=== PATIENT | female | born 1945 | race Asian ===

== ENCOUNTER 2019-09-05 17:14 | Inpatient (IN) | payer MEDICAID, OTHER ==
[~2019-09-05] VITALS: Ht 152.4 cm; Wt 72.4 kg
[2019-09-05] MEDS ORDERED: SODIUM CHLORIDE 0.9% 1,000 ML IV ONE (17:42)
[2019-09-05] MEDS ORDERED: ACETAMINOPHEN 500 MG TABLET PO ONE (17:45)
[2019-09-05] MEDS ORDERED: ONDANSETRON HCL 4 MG/2 ML VIAL IVP ONE (18:00)
[2019-09-05 18:08] LABS: MEAN CORPUSCULAR HEMOGLOBIN 29.4 pg (26.0-34.0); MEAN CORPUSCULAR HGB CONC 33.4 G/dL (31.0-37.0); MEAN CORPUSCULAR VOLUME 88 fL (80-100); PLATELET COUNT (AUTO) 345 K/uL (150-450); RED BLOOD CELL COUNT(AUTO) 4.08 MIL/uL (4.00-5.20); RED CELL DISTRIBUTION WIDTH 13.1 % (11.5-14.5)
[2019-09-05 18:22] LABS: PROTHROMBIN TIME 10.2 SEC (9.4-11.6)
[2019-09-05 18:26] LABS: CALCIUM, TOTAL 8.4 mg/dL (8.8-10.5); CREATININE 2.01 mg/dL (0.60-1.30); POTASSIUM 4.9 mmol/L (3.5-5.1)
[2019-09-05 18:34] LABS: LACTIC ACID 1.8 mmol/L (0.4-2.0)
[2019-09-05 18:51] LABS: ALBUMIN 3.3 g/dL (3.4-5.0); BILIRUBIN,TOTAL 0.6 mg/dL (0.1-1.0); TOTAL PROTEIN, SERUM 7.8 g/dL (6.4-8.2)
[2019-09-05 19:01] LABS: BAND NEUTROPHILS % (MANUAL) 15 % (0-5); LYMPHOCYTES % (MANUAL) 5 % (22-44); MONOCYTES % (MANUAL) 9 % (2-9); SEGMENTED NEUTROPHILS % 71 % (40-70)
[2019-09-05 19:03] LABS: INFLUENZA TYPE A NEGATIVE FOR TYPE A (NEGATIVE); INFLUENZA TYPE B NEGATIVE FOR TYPE B (NEGATIVE)
[2019-09-05] MEDS ORDERED: CefTRIAXone 1 GM/DEXTROSE 50 ML IV ONE (19:15)
[2019-09-05] MEDS ORDERED: AZITHROMYCIN 500 MG/NS 250 ML IV ONE (19:15)
[2019-09-05] MEDS ORDERED: ONDANSETRON HCL 4 MG/2 ML VIAL IVP PRN ×2 (19:30→22:30)
[2019-09-05] MEDS ORDERED: ACETAMINOPHEN 325 MG TABLET PO PRN (19:30)
[2019-09-05] MEDS ORDERED: CLOP75TA3 PO (21:46)
[2019-09-05] MEDS ORDERED: OMEP20 PO (21:46)
[2019-09-05] MEDS ORDERED: TELM40 PO (21:46)
[2019-09-05] MEDS ORDERED: ROSU10TA22 PO (21:46)
[2019-09-05] MEDS ORDERED: LEVO100 PO (21:46)
[2019-09-05] MEDS: DOCUSATE SODIUM 100 MG CAPSULE PO SCH (22:30)
[2019-09-05] MEDS ORDERED: OxyCODONE HCL/ACETAMINOPHEN 5-325 MG TABLET PO PRN ×2 (22:30)
[2019-09-05] MEDS ORDERED: 0.9% SODIUM CHLORIDE 10 ML SYRINGE IVP PRN (22:30)
[2019-09-05 22:59] VITALS: BP 136/79
[2019-09-06 05:09] VITALS: BP 117/57
[2019-09-06] MEDS: DILTIAZEM HCL 30 MG TABLET PO SCH ×2 (05:55→16:18)
[2019-09-06] MEDS ORDERED: DILTIAZEM HCL 30 MG TABLET PO SCH (08:00)
[2019-09-06] MEDS: DOCUSATE SODIUM 100 MG CAPSULE PO SCH ×2 (08:37→22:14)
[2019-09-06] MEDS: FAMOTIDINE 10 MG/ML 2 ML VIAL IVP SCH (08:37)
[2019-09-06 11:55] LABS: APPEARANCE,URINE CLEAR (CLEAR); BILIRUBIN,URINE NEGATIVE (NEGATIVE); GLUCOSE, URINE (UA) NEGATIVE (NEGATIVE); KETONES,URINE NEGATIVE (NEGATIVE); LEUKOCYTE ESTERASE ,URINE NEGATIVE (NEGATIVE); NITRATE,URINE NEGATIVE (NEGATIVE); OCCULT BLOOD,URINE TRACE (NEGATIVE); PH,URINE 5.5 (5.0-8.0); PROTEIN,URINE SEE CONFIRM (NEGATIVE); UROBILINOGEN,URINE 0.2 mg/dL (<=1.0)
[2019-09-06 12:12] LABS: SULFOSALICYLIC ACID,URINE 1+ (Negative)
[2019-09-06 12:18] LABS: BACTERIA,URINE None Seen /HPF (None Seen); RBC,URINE None Seen /HPF (0-2); SQUAMOUS EPITHELIAL CELL,UR Few /LPF (None Seen); WBC,URINE 0-2 /HPF (0-5)
[2019-09-06 14:08] VITALS: BP 120/65
[2019-09-06 16:25] VITALS: BP 134/80
[2019-09-06] MEDS ORDERED: PANTOPRAZOLE SODIUM 40 MG DR TABLET PO ONE (16:45)
[2019-09-06] MEDS ORDERED: TELMISARTAN 40 MG TABLET PO ONE (16:45)
[2019-09-06] MEDS ORDERED: LEVOTHYROXINE SODIUM 100 MCG TABLET PO ONE (16:45)
[2019-09-06] MEDS: ROSUVASTATIN CALCIUM 10 MG TABLET PO SCH (16:57)
[2019-09-06] MEDS: CLOPIDOGREL BISULFATE 75 MG TABLET PO SCH (16:57)
[2019-09-06] MEDS ORDERED: RENALOG PO (18:55)
[2019-09-06] MEDS: CefTRIAXone 1 GM/DEXTROSE 50 ML IV SCH (22:14)
[2019-09-06] MEDS: SODIUM CHLORIDE 0.45% 1,000 ML IV SCH (22:14)
[2019-09-06 22:32] VITALS: BP 129/76
[2019-09-07] MEDS: AZITHROMYCIN 500 MG/NS 250 ML IV SCH (00:04)
[2019-09-07] MEDS: [UNRECOGNIZED DRUG - OTHER] PO SCH ×3 (00:07→21:28)
[2019-09-07] MEDS: DILTIAZEM HCL 30 MG TABLET PO SCH ×3 (00:21→15:43)
[2019-09-07 00:30] VITALS: BP 136/63
[2019-09-07] MEDS: LEVOTHYROXINE SODIUM 100 MCG TABLET PO SCH (05:00)
[2019-09-07 05:12] VITALS: BP 116/60
[2019-09-07 08:12] VITALS: BP 112/60
[2019-09-07] MEDS: PANTOPRAZOLE SODIUM 40 MG DR TABLET PO SCH (08:18)
[2019-09-07] MEDS: FAMOTIDINE 10 MG/ML 2 ML VIAL IVP SCH (08:18)
[2019-09-07] MEDS: DOCUSATE SODIUM 100 MG CAPSULE PO SCH ×2 (08:18→21:00)
[2019-09-07] MEDS: CLOPIDOGREL BISULFATE 75 MG TABLET PO SCH (08:18)
[2019-09-07] MEDS: ROSUVASTATIN CALCIUM 10 MG TABLET PO SCH (08:19)
[2019-09-07] MEDS: SODIUM CHLORIDE 0.45% 1,000 ML IV SCH (08:28)
[2019-09-07] MEDS ORDERED: TELMISARTAN 40 MG TABLET PO SCH (09:00)
[2019-09-07 12:24] VITALS: BP 104/63
[2019-09-07 14:32] LABS: BASOPHILS % (AUTO) 0.5 % (0.0-2.0); EOSINOPHILS % (AUTO) 2.6 % (1.0-6.0); HEMATOCRIT 31.4 % (36-46); HEMOGLOBIN 10.5 g/dL (12.0-16.0); LYMPHOCYTES # (AUTO) 2.3 K/uL (1.0-4.8); LYMPHOCYTES % (AUTO) 25.5 % (22.0-44.0); MEAN CORPUSCULAR HEMOGLOBIN 29.9 pg (26.0-34.0); MEAN CORPUSCULAR HGB CONC 33.4 G/dL (31.0-37.0); MEAN CORPUSCULAR VOLUME 89 fL (80-100); MONOCYTES # (AUTO) 0.8 K/uL (0.1-1.0); MONOCYTES % (AUTO) 9.1 % (2.0-9.0); NEUTROPHILS # (AUTO) 5.6 K/uL (1.8-7.7); NEUTROPHILS % (AUTO) 62.3 % (40.0-70.0); PLATELET COUNT (AUTO) 312 K/uL (150-450); RED BLOOD CELL COUNT(AUTO) 3.51 MIL/uL (4.00-5.20); RED CELL DISTRIBUTION WIDTH 13.4 % (11.5-14.5)
[2019-09-07 14:56] LABS: C-REACTIVE PROTEIN QUANT 7.45 mg/dL (0.00-0.30); CREATININE 1.86 mg/dL (0.60-1.30); MAGNESIUM 2.1 mg/dL (1.80-2.40); PHOSPHORUS 3.8 mg/dL (2.5-4.9); POTASSIUM 4.2 mmol/L (3.5-5.1); THYROID STIMULATING HORMONE 0.22 uIU/mL (0.36-3.74)
[2019-09-07 16:01] VITALS: BP 124/89
[2019-09-07 20:39] VITALS: BP 122/67
[2019-09-07] MEDS: CefTRIAXone 1 GM/DEXTROSE 50 ML IV SCH (21:28)
[2019-09-08] MEDS: AZITHROMYCIN 500 MG/NS 250 ML IV SCH ×2 (00:08→21:00)
[2019-09-08] MEDS: SODIUM CHLORIDE 0.45% 1,000 ML IV SCH ×2 (00:08→21:52)
[2019-09-08] MEDS: DILTIAZEM HCL 30 MG TABLET PO SCH ×3 (00:09→16:42)
[2019-09-08 00:31] VITALS: BP 135/92
[2019-09-08 04:11] VITALS: BP 125/82
[2019-09-08] MEDS: LEVOTHYROXINE SODIUM 100 MCG TABLET PO SCH (05:52)
[2019-09-08 08:45] VITALS: BP 133/94
[2019-09-08] MEDS: DOCUSATE SODIUM 100 MG CAPSULE PO SCH ×2 (09:00→21:00)
[2019-09-08] MEDS: FAMOTIDINE 10 MG/ML 2 ML VIAL IVP SCH (09:06)
[2019-09-08] MEDS: PANTOPRAZOLE SODIUM 40 MG DR TABLET PO SCH (09:06)
[2019-09-08] MEDS: CLOPIDOGREL BISULFATE 75 MG TABLET PO SCH (09:06)
[2019-09-08] MEDS: [UNRECOGNIZED DRUG - OTHER] PO SCH ×2 (09:06→21:47)
[2019-09-08] MEDS: ROSUVASTATIN CALCIUM 10 MG TABLET PO SCH (09:06)
[2019-09-08 12:00] VITALS: BP 124/78
[2019-09-08 12:49] LABS: APPEARANCE,URINE CLEAR (CLEAR); BILIRUBIN,URINE NEGATIVE (NEGATIVE); GLUCOSE, URINE (UA) NEGATIVE (NEGATIVE); KETONES,URINE NEGATIVE (NEGATIVE); LEUKOCYTE ESTERASE ,URINE NEGATIVE (NEGATIVE); NITRATE,URINE NEGATIVE (NEGATIVE); OCCULT BLOOD,URINE NEGATIVE (NEGATIVE); PROTEIN,URINE SEE CONFIRM (NEGATIVE); UROBILINOGEN,URINE 0.2 mg/dL (<=1.0)
[2019-09-08 12:56] LABS: BACTERIA,URINE None Seen /HPF (None Seen); HYALINE CASTS, URINE 0-2 /LPF (None Seen); RBC,URINE None Seen /HPF (0-2); SQUAMOUS EPITHELIAL CELL,UR Few /LPF (None Seen); SULFOSALICYLIC ACID,URINE 1+ (Negative); WBC,URINE None Seen /HPF (0-5)
[2019-09-08 13:07] LABS: CREATININE,URINE RANDOM 47.5 mg/dL (30.0-125.0); SODIUM,URINE RANDOM 130 mmol/l (20-110); UREA NITROGEN,URINE RANDOM 309 mg/dL (350-1000)
[2019-09-08 16:30] VITALS: BP 120/63
[2019-09-08] MEDS: CefTRIAXone 1 GM/DEXTROSE 50 ML IV SCH (20:00)
[2019-09-08 20:50] VITALS: BP 120/69
[2019-09-09 00:46] VITALS: BP 129/66
[2019-09-09] MEDS: DILTIAZEM HCL 30 MG TABLET PO SCH ×3 (00:50→15:52)
[2019-09-09 05:06] VITALS: BP 121/66
[2019-09-09] MEDS: LEVOTHYROXINE SODIUM 100 MCG TABLET PO SCH (06:13)
[2019-09-09 07:51] VITALS: BP 116/70
[2019-09-09] MEDS: FAMOTIDINE 10 MG/ML 2 ML VIAL IVP SCH (08:32)
[2019-09-09] MEDS: ROSUVASTATIN CALCIUM 10 MG TABLET PO SCH (08:32)
[2019-09-09] MEDS: SODIUM CHLORIDE 0.45% 1,000 ML IV SCH (08:32)
[2019-09-09] MEDS: DOCUSATE SODIUM 100 MG CAPSULE PO SCH ×2 (08:32→21:00)
[2019-09-09] MEDS: PANTOPRAZOLE SODIUM 40 MG DR TABLET PO SCH (08:32)
[2019-09-09] MEDS: [UNRECOGNIZED DRUG - OTHER] PO SCH ×2 (08:32→21:00)
[2019-09-09] MEDS: CLOPIDOGREL BISULFATE 75 MG TABLET PO SCH (08:32)
[2019-09-09] MEDS ORDERED: SODIUM CHLORIDE 3% 15 ML NEB SOLUTION NEB ONE ×2 (11:53→11:59)
[2019-09-09 12:15] VITALS: BP 132/65
[2019-09-09 13:00] LABS: BASOPHILS % (AUTO) 0.5 % (0.0-2.0); EOSINOPHILS % (AUTO) 3.5 % (1.0-6.0); HEMOGLOBIN 11.7 g/dL (12.0-16.0); LYMPHOCYTES # (AUTO) 2.1 K/uL (1.0-4.8); LYMPHOCYTES % (AUTO) 27.6 % (22.0-44.0); MEAN CORPUSCULAR HEMOGLOBIN 29.6 pg (26.0-34.0); MEAN CORPUSCULAR HGB CONC 33.3 G/dL (31.0-37.0); MEAN CORPUSCULAR VOLUME 89 fL (80-100); MONOCYTES # (AUTO) 0.7 K/uL (0.1-1.0); MONOCYTES % (AUTO) 9.5 % (2.0-9.0); NEUTROPHILS # (AUTO) 4.4 K/uL (1.8-7.7); NEUTROPHILS % (AUTO) 58.9 % (40.0-70.0); PLATELET COUNT (AUTO) 380 K/uL (150-450); RED BLOOD CELL COUNT(AUTO) 3.94 MIL/uL (4.00-5.20); RED CELL DISTRIBUTION WIDTH 13.1 % (11.5-14.5)
[2019-09-09 13:09] LABS: CALCIUM, TOTAL 8.5 mg/dL (8.8-10.5); CREATININE 1.74 mg/dL (0.60-1.30); POTASSIUM 4.6 mmol/L (3.5-5.1)
[2019-09-09 16:16] VITALS: BP 117/68
[2019-09-09] MEDS: CefTRIAXone 1 GM/DEXTROSE 50 ML IV SCH (20:00)
[2019-09-09 20:26] VITALS: BP 127/68
[2019-09-09] MEDS: AZITHROMYCIN 500 MG/NS 250 ML IV SCH (22:00)
[2019-09-10] VITALS (7 sets, daily range): BP systolic 109–143; BP diastolic 59–86
[2019-09-10] MEDS: DILTIAZEM HCL 30 MG TABLET PO SCH ×4 (00:55→23:43)
[2019-09-10] MEDS: SODIUM CHLORIDE 0.45% 1,000 ML IV SCH ×2 (01:06→23:43)
[2019-09-10] MEDS: LEVOTHYROXINE SODIUM 100 MCG TABLET PO SCH (05:34)
[2019-09-10 06:56] LABS: BASOPHILS % (AUTO) 0.6 % (0.0-2.0); EOSINOPHILS % (AUTO) 3.5 % (1.0-6.0); HEMATOCRIT 32.5 % (36-46); HEMOGLOBIN 11.2 g/dL (12.0-16.0); LYMPHOCYTES # (AUTO) 2.5 K/uL (1.0-4.8); LYMPHOCYTES % (AUTO) 31.8 % (22.0-44.0); MEAN CORPUSCULAR HEMOGLOBIN 30.1 pg (26.0-34.0); MEAN CORPUSCULAR HGB CONC 34.3 G/dL (31.0-37.0); MEAN CORPUSCULAR VOLUME 88 fL (80-100); MONOCYTES # (AUTO) 0.9 K/uL (0.1-1.0); MONOCYTES % (AUTO) 11.3 % (2.0-9.0); NEUTROPHILS # (AUTO) 4.2 K/uL (1.8-7.7); NEUTROPHILS % (AUTO) 52.8 % (40.0-70.0); PLATELET COUNT (AUTO) 391 K/uL (150-450); RED BLOOD CELL COUNT(AUTO) 3.71 MIL/uL (4.00-5.20)
[2019-09-10 07:23] LABS: CALCIUM, TOTAL 8.3 mg/dL (8.8-10.5); CREATININE 1.86 mg/dL (0.60-1.30); POTASSIUM 4.4 mmol/L (3.5-5.1)
[2019-09-10 09:51] LABS: HIV 1-2 SCREEN 4TH GEN W/RFLX Non Reactive (Non Reactive)
[2019-09-10] MEDS: FAMOTIDINE 10 MG/ML 2 ML VIAL IVP SCH (10:43)
[2019-09-10] MEDS: [UNRECOGNIZED DRUG - OTHER] PO SCH ×2 (10:43→20:29)
[2019-09-10] MEDS: DOCUSATE SODIUM 100 MG CAPSULE PO SCH ×2 (10:44→20:30)
[2019-09-10] MEDS: ROSUVASTATIN CALCIUM 10 MG TABLET PO SCH (10:44)
[2019-09-10] MEDS: CLOPIDOGREL BISULFATE 75 MG TABLET PO SCH (10:44)
[2019-09-10] MEDS: PANTOPRAZOLE SODIUM 40 MG DR TABLET PO SCH (10:44)
[2019-09-10] MEDS: CefTRIAXone 1 GM/DEXTROSE 50 ML IV SCH (20:29)
[2019-09-10] MEDS: AZITHROMYCIN 500 MG/NS 250 ML IV SCH (21:46)
[2019-09-11 04:23] VITALS: BP 135/65
[2019-09-11] MEDS: LEVOTHYROXINE SODIUM 100 MCG TABLET PO SCH (05:47)
[2019-09-11 06:43] LABS: CALCIUM, TOTAL 8.9 mg/dL (8.8-10.5); CREATININE 1.82 mg/dL (0.60-1.30); PHOSPHORUS 3.8 mg/dL (2.5-4.9); POTASSIUM 4.5 mmol/L (3.5-5.1)
[2019-09-11 07:30] VITALS: BP 139/76
[2019-09-11] MEDS: FAMOTIDINE 10 MG/ML 2 ML VIAL IVP SCH (08:00)
[2019-09-11] MEDS: ROSUVASTATIN CALCIUM 10 MG TABLET PO SCH (08:01)
[2019-09-11] MEDS: CLOPIDOGREL BISULFATE 75 MG TABLET PO SCH (08:01)
[2019-09-11] MEDS: DILTIAZEM HCL 30 MG TABLET PO SCH ×2 (08:01→15:42)
[2019-09-11] MEDS: PANTOPRAZOLE SODIUM 40 MG DR TABLET PO SCH (08:01)
[2019-09-11] MEDS: DOCUSATE SODIUM 100 MG CAPSULE PO SCH (08:15)
[2019-09-11] MEDS: [UNRECOGNIZED DRUG - OTHER] PO SCH (08:48)
[2019-09-11 11:03] VITALS: BP 142/71
[2019-09-11] MEDS ORDERED: DILT30 PO (15:10)
[2019-09-11] MEDS ORDERED: LEVO100 PO (15:12)
[2019-09-11] MEDS ORDERED: AMOX1TAB16 PO (15:16)
[2019-09-11] MEDS: CefTRIAXone 1 GM/DEXTROSE 50 ML IV SCH (15:33)
[2019-09-12 11:07] LABS: LEGIONELLA PNEUMO AG URINE Negative (Negative); ORGANISM ID Not indicated.; S PNEUMO SOURCE Urine; STREP PNEUMONIAE AG URINE Negative (Negative); STREP.PNEUMO BODY FLUID CULT. Not indicated.
== END 2019-09-11 16:30 | disposition home or self-care (01) | DRG 871 ==
LOC: EMS 17:16 → 5N 21:00
PROVIDERS: ADMIT Internal Medicine; ATTEND Internal Medicine
DX: A41.9 Sepsis, unspecified organism (principal); J18.9 Pneumonia, unspecified organism; E44.0 Moderate protein-calorie malnutrition; N17.9 Acute kidney failure, unspecified; N18.4 Chronic kidney disease, stage 4 (severe); R73.9 Hyperglycemia, unspecified; I12.9 Hypertensive chronic kidney disease with stage 1 through stage 4 chronic kidney disease, or unspecified chronic kidney disease; E03.9 Hypothyroidism, unspecified; E78.5 Hyperlipidemia, unspecified; I25.10 Atherosclerotic heart disease of native coronary artery without angina pectoris; Z68.31 Body mass index [BMI] 31.0-31.9, adult; Z90.49 Acquired absence of other specified parts of digestive tract; Z90.710 Acquired absence of both cervix and uterus
CPT/HCPCS: 71250; 82570; 83605; 83735; 84100; 84300; 84443; 84540; 86140; 87015; 87040; 87070; 87205; 87206; 87252; 87389; 87449; 87556; 87798; 87804; 87899; 93005; 94640; 96365; 96375; J0456; J0696; J2405; J3490; J7030

== ENCOUNTER 2020-12-31 10:38 | Emergency (ER) | payer MEDICAID, OTHER ==
[~2020-12-31] VITALS: Ht 149.9 cm; Wt 77.0 kg
[~2020-12-31 10:38] MED LIST: AMOX1TAB16 PO; CLOP75TA60 PO; DILT30TA4 PO; LEVO100 PO; OMEP20 PO; RENALOG PO; ROSU10TA72 PO; TELM40 PO
[2020-12-31 11:09] LABS: COVID AG,FIA SOURCE NASOPHARYNGEAL
[2020-12-31 11:14] LABS: BASOPHILS % (AUTO) 0.7 % (0.0-2.0); EOSINOPHILS % (AUTO) 2.3 % (1.0-6.0); HEMATOCRIT 35.1 % (36-46); HEMOGLOBIN 11.5 g/dL (12.0-16.0); LYMPHOCYTES # (AUTO) 2.3 K/uL (1.0-4.8); LYMPHOCYTES % (AUTO) 26.6 % (22.0-44.0); MEAN CORPUSCULAR HEMOGLOBIN 29.1 pg (26.0-34.0); MEAN CORPUSCULAR HGB CONC 32.9 G/dL (31.0-37.0); MEAN CORPUSCULAR VOLUME 89 fL (80-100); MONOCYTES # (AUTO) 0.6 K/uL (0.1-1.0); MONOCYTES % (AUTO) 6.8 % (2.0-9.0); NEUTROPHILS # (AUTO) 5.4 K/uL (1.8-7.7); NEUTROPHILS % (AUTO) 63.6 % (40.0-70.0); PLATELET COUNT (AUTO) 373 K/uL (150-450); RED BLOOD CELL COUNT(AUTO) 3.96 MIL/uL (4.00-5.20); RED CELL DISTRIBUTION WIDTH 13.2 % (11.5-14.5)
[2020-12-31 11:24] LABS: CALCIUM, TOTAL 8.7 mg/dL (8.8-10.5); CREATININE 2.2 mg/dL (0.60-1.30)
[2020-12-31 11:30] LABS: ALBUMIN 3.5 g/dL (3.4-5.0); BILIRUBIN,TOTAL 0.3 mg/dL (0.1-1.0); TOTAL PROTEIN, SERUM 7.7 g/dL (6.4-8.2)
[2020-12-31] MEDS ORDERED: SODIUM CHLORIDE 0.9% 1,000 ML IV ONE (12:00)
[2020-12-31] MEDS ORDERED: PENTETATE DTPA TC99M/MCL ISOTOPE 1 EA INJ INJ ONE (13:35)
[2020-12-31] MEDS ORDERED: MAA ALBUMIN AGGREGATED TC99M/UD<10MCL ISOTOPE 1 EA INJ INJ ONE (13:50)
[2020-12-31 14:31] VITALS: BP 127/91
== END 2020-12-31 14:54 | disposition home or self-care (01) ==
LOC: EMS 10:43
DX: R07.9 Chest pain, unspecified (principal); R06.02 Shortness of breath; M79.89 Other specified soft tissue disorders; I10 Essential (primary) hypertension; Z20.822 Contact with and (suspected) exposure to COVID-19; Z90.89 Acquired absence of other organs
CPT/HCPCS: 36415; 71045; 72100; 78582; 80053; 83690; 83880; 84484; 85025; 85379; 87426; 93005; 96360; 99285; A9539; A9540

== ENCOUNTER 2021-01-25 09:56 | Emergency (ER) | payer MEDICAID ==
[~2021-01-25] VITALS: Ht 149.9 cm; Wt 75.0 kg
[2021-01-25] MEDS ORDERED: ASPIRIN 81 MG CHEWABLE TABLET PO ONE (10:30)
[2021-01-25 10:46] LABS: BASOPHILS % (AUTO) 0.7 % (0.0-2.0); EOSINOPHILS % (AUTO) 2.6 % (1.0-6.0); HEMATOCRIT 31.9 % (36-46); HEMOGLOBIN 10.8 g/dL (12.0-16.0); LYMPHOCYTES # (AUTO) 2.1 K/uL (1.0-4.8); LYMPHOCYTES % (AUTO) 27.3 % (22.0-44.0); MEAN CORPUSCULAR HGB CONC 33.8 G/dL (31.0-37.0); MEAN CORPUSCULAR VOLUME 89 fL (80-100); MONOCYTES # (AUTO) 0.5 K/uL (0.1-1.0); MONOCYTES % (AUTO) 6.5 % (2.0-9.0); NEUTROPHILS # (AUTO) 4.8 K/uL (1.8-7.7); NEUTROPHILS % (AUTO) 62.9 % (40.0-70.0); PLATELET COUNT (AUTO) 377 K/uL (150-450); RED CELL DISTRIBUTION WIDTH 12.9 % (11.5-14.5)
[2021-01-25 10:52] LABS: COVID AG,FIA SOURCE NASOPHARYNGEAL
[2021-01-25 11:17] LABS: CALCIUM, TOTAL 8.1 mg/dL (8.8-10.5); CREATININE 1.87 mg/dL (0.60-1.30); POTASSIUM 4.2 mmol/L (3.5-5.1)
[2021-01-25 11:23] LABS: ALBUMIN 2.9 g/dL (3.4-5.0); BILIRUBIN,TOTAL 0.2 mg/dL (0.1-1.0)
[2021-01-25] MEDS ORDERED: PENTETATE DTPA TC99M/MCL ISOTOPE 1 EA INJ INJ ONE (13:20)
[2021-01-25] MEDS ORDERED: MAA ALBUMIN AGGREGATED TC99M/UD<10MCL ISOTOPE 1 EA INJ INJ ONE (13:35)
[2021-01-25 14:34] LABS: APPEARANCE,URINE CLEAR (CLEAR); BILIRUBIN,URINE NEGATIVE (NEGATIVE); GLUCOSE, URINE (UA) NEGATIVE (NEGATIVE); KETONES,URINE NEGATIVE (NEGATIVE); LEUKOCYTE ESTERASE ,URINE NEGATIVE (NEGATIVE); NITRATE,URINE NEGATIVE (NEGATIVE); OCCULT BLOOD,URINE TRACE (NEGATIVE); PROTEIN,URINE SEE CONFIRM (NEGATIVE); UROBILINOGEN,URINE 0.2 mg/dL (<=1.0)
[2021-01-25 14:37] VITALS: BP 153/82
[2021-01-25 14:49] LABS: SULFOSALICYLIC ACID,URINE 3+ (Negative)
[2021-01-25 14:50] LABS: BACTERIA,URINE None Seen /HPF (None Seen); RBC,URINE None Seen /HPF (0-2); SQUAMOUS EPITHELIAL CELL,UR Few /LPF (None Seen); WBC,URINE 0-2 /HPF (0-5)
== END 2021-01-25 15:21 | disposition admitted as inpatient to this hospital (09) ==
LOC: EMS 09:59
DX: R07.9 Chest pain, unspecified (principal); I10 Essential (primary) hypertension; E03.9 Hypothyroidism, unspecified; Z79.899 Other long term (current) drug therapy; Z20.822 Contact with and (suspected) exposure to COVID-19
CPT/HCPCS: 36415; 71045; 78582; 80053; 81001; 83690; 83880; 84484; 85025; 85379; 87426; 93005; 99285; A9539; A9540; U0003; 81002

== ENCOUNTER 2021-06-27 21:43 | Emergency (ER) | payer MEDICAID, OTHER ==
[~2021-06-27] VITALS: Ht 149.9 cm; Wt 7.0 kg
[2021-06-27 22:43] VITALS: BP 159/84
[2021-06-27] MEDS ORDERED: AMOX TR/POT CLAV 875 MG/125 MG TABLET PO ONE (23:00)
== END 2021-06-27 22:53 | disposition home or self-care (01) ==
LOC: EMS 21:44
DX: H66.92 Otitis media, unspecified, left ear (principal); I10 Essential (primary) hypertension; E03.9 Hypothyroidism, unspecified; Z79.899 Other long term (current) drug therapy
CPT/HCPCS: 99283

== ENCOUNTER 2023-06-05 13:36 | Inpatient (IN) | payer OTHER ==
[~2023-06-05] VITALS: Ht 149.9 cm; Wt 74.0 kg
[2023-06-05] MEDS ORDERED: SODIUM CHLORIDE 0.9% 1,000 ML IV ONE (14:30)
[2023-06-05] MEDS ORDERED: LIDO1ADH63 TD (14:33)
[2023-06-05] MEDS ORDERED: FINE10TA PO (14:33)
[2023-06-05] MEDS ORDERED: LID5O TP (14:33)
[2023-06-05] MEDS ORDERED: EMPA10TA3 PO (14:33)
[2023-06-05] MEDS ORDERED: ATOR20TA65 PO (14:33)
[2023-06-05] MEDS ORDERED: AMLO2.5T29 PO (14:33)
[2023-06-05] MEDS ORDERED: BUDE10.22 IH (14:33)
[2023-06-05] MEDS ORDERED: OMEP20CA12 PO (14:33)
[2023-06-05] MEDS ORDERED: ISOS30TA92 PO (14:33)
[2023-06-05] MEDS ORDERED: LEVO50TA11 PO (14:33)
[2023-06-05] MEDS ORDERED: METO-391 PO (14:33)
[2023-06-05] MEDS ORDERED: DICL100G60 TP (14:33)
[2023-06-05] MEDS ORDERED: ASPI-1444 PO (14:33)
[2023-06-05 14:35] LABS: BASOPHILS % (AUTO) 0.6 % (0.0-2.0); EOSINOPHILS % (AUTO) 0.1 % (1.0-6.0); HEMATOCRIT 31.6 % (36-46); HEMOGLOBIN 10.5 g/dL (12.0-16.0); LYMPHOCYTES # (AUTO) 1.1 K/uL (1.0-4.8); LYMPHOCYTES % (AUTO) 16.8 % (22.0-44.0); MEAN CORPUSCULAR HGB CONC 33.3 G/dL (31.0-37.0); MEAN CORPUSCULAR VOLUME 90 fL (80-100); MONOCYTES # (AUTO) 0.8 K/uL (0.1-1.0); MONOCYTES % (AUTO) 12.1 % (2.0-9.0); NEUTROPHILS # (AUTO) 4.7 K/uL (1.8-7.7); NEUTROPHILS % (AUTO) 70.4 % (40.0-70.0); PLATELET COUNT (AUTO) 316 K/uL (150-450); RED BLOOD CELL COUNT(AUTO) 3.51 MIL/uL (4.00-5.20); RED CELL DISTRIBUTION WIDTH 13.4 % (11.5-14.5); WHITE BLOOD COUNT (AUTO) 6.7 K/uL (4.5-11.0)
[2023-06-05 14:45] LABS: ANION GAP 12 mmol/L (8-16); CALCIUM, TOTAL 7.9 mg/dL (8.8-10.5); CARBON DIOXIDE 20 mmol/L (22-29); CHLORIDE 102 mmol/L (98-107); CREATININE 3.02 mg/dL (0.60-1.30); GLOMERULAR FILTR. RATE CALC 15 mL/min (>60); GLUCOSE,RANDOM 140 mg/dL (70-110); POTASSIUM 4.1 mmol/L (3.5-5.1); SODIUM SERUM 134 mmol/L (136-145); UREA NITROGEN, BLOOD 37 mg/dL (7-18)
[2023-06-05 14:46] LABS: ALCOHOL, BLOOD (SERUM) < 3 mg/dL (0-10)
[2023-06-05 14:53] LABS: LACTIC ACID 1.3 mmol/L (0.4-2.0)
[2023-06-05 14:56] LABS: TROPONIN I-HIGH SENSITIVITY 5 ng/L (<51)
[2023-06-05 14:59] LABS: ALANINE AMINOTRANSFERASE 18 U/L (12-78); ALBUMIN 3.2 g/dL (3.4-5.0); ALKALINE PHOSPHATASE 79 U/L (46-116); ASPARTATE AMINOTRANSFERASE 23 U/L (15-37); BILIRUBIN,TOTAL 0.3 mg/dL (0.1-1.0); LIPASE 124 U/L (16-77); TOTAL PROTEIN, SERUM 7.7 g/dL (6.4-8.2)
[2023-06-05] MEDS ORDERED: METO25XL PO (17:30)
[2023-06-05 17:34] LABS: COVID AG,FIA SOURCE NASAL SWAB
[2023-06-05 18:22] LABS: SARS-COV2 (COVID) ANTIGEN,FIA Negative (Negative)
[2023-06-05 18:45] VITALS: BP 117/60; PULSE 95; RESP 20; TEMP 98.4
[2023-06-05 18:49] LABS: INFLUENZA TYPE B NEGATIVE FOR TYPE B (NEGATIVE)
[2023-06-05 18:53] LABS: INFLUENZA TYPE A POSITIVE FOR TYPE A (NEGATIVE)
[2023-06-05 20:03] VITALS: BP 127/66; PULSE 90; RESP 19; TEMP 98.5
[2023-06-05] MEDS ORDERED: ALBUTEROL SULFATE 2.5 MG/0.5 ML NEB SOLUTION NEB PRN (21:45)
[2023-06-05] MEDS ORDERED: ONDANSETRON HCL 4 MG/2 ML VIAL IVP PRN (21:45)
[2023-06-05] MEDS ORDERED: LIDOCAINE 5% 36 GM OINTMENT TP PRN (21:45)
[2023-06-05] MEDS ORDERED: IPRATROPIUM BROMIDE 0.5 MG/2.5 ML NEB SOLUTION NEB PRN (21:45)
[2023-06-05] MEDS ORDERED: ZOLPIDEM TARTRATE 5 MG TABLET PO PRN (21:45)
[2023-06-05] MEDS ORDERED: BISACODYL 10 MG RECTAL RECTAL SUPPOSITORY PR PRN (21:45)
[2023-06-05] MEDS ORDERED: MAGNESIUM HYDROXIDE SUSPENSION 30 ML UDCUP PO PRN (21:45)
[2023-06-05] MEDS ORDERED: MORPHINE SULFATE 2 MG/ML SYRINGE IVP PRN (21:45)
[2023-06-05] MEDS ORDERED: ACETAMINOPHEN 325 MG TABLET PO PRN (21:45)
[2023-06-05] MEDS ORDERED: INSULIN LISPRO 100 UNITS/ML SQ PRN (23:00)
[2023-06-05] MEDS ORDERED: DEXTROSE 50%-WATER 25 GM/50 ML SYRINGE IVP PRN (23:00)
[2023-06-05 23:12] LABS: APPEARANCE,URINE CLEAR (CLEAR); BILIRUBIN,URINE NEGATIVE (NEGATIVE); COLOR,URINE COLORLESS (YELLOW); GLUCOSE, URINE (UA) 300-500 mg/dL (NEGATIVE); KETONES,URINE NEGATIVE (NEGATIVE); LEUKOCYTE ESTERASE ,URINE NEGATIVE (NEGATIVE); NITRATE,URINE NEGATIVE (NEGATIVE); OCCULT BLOOD,URINE TRACE (NEGATIVE); PH,URINE 5.5 (5.0-8.0); PH,URINE DRUG SCREEN 5.5 (5.0-8.0); PROTEIN,URINE 30-70 mg/dL (NEGATIVE); SPECIFIC GRAVITIY, URINE 1.009 (1.003-1.030); UROBILINOGEN,URINE <=1.0 mg/dL (<=1.0)
[2023-06-05 23:19] LABS: ALCOHOL, URINE DRUG SCREEN NEGATIVE (NEGATIVE); AMPHET/METH SCREEN,URINE NEGATIVE (NEGATIVE); BARBITURATE SCREEN, URINE NEGATIVE (NEGATIVE); BENZODIAZEPINES SCREEN,URINE NEGATIVE (NEGATIVE); CANNABINOID SCREEN,URINE NEGATIVE (NEGATIVE); COCAINE SCREEN,URINE NEGATIVE (NEGATIVE); METHADONE SCREEN, URINE NEGATIVE (NEGATIVE); OPIATE SCREEN,URINE NEGATIVE (NEGATIVE); PHENCYCLIDINE SCREEN,URINE NEGATIVE (NEGATIVE)
[2023-06-05 23:32] LABS: BACTERIA,URINE None Seen /HPF (None Seen); RBC,URINE 0-2 /HPF (0-2); SQUAMOUS EPITHELIAL CELL,UR None Seen /LPF (None Seen); WBC,URINE None Seen /HPF (0-5)
[2023-06-05 23:56] VITALS: BP 125/62; PULSE 87; RESP 18; TEMP 99.2
[2023-06-06] MEDS: HEPARIN SODIUM,PORCINE 5,000 UNITS/ML VIAL SQ SCH ×3 (00:39→15:31)
[2023-06-06] MEDS: OSELTAMIVIR PHOSPHATE 30 MG CAPSULE PO SCH ×2 (00:39→09:10)
[2023-06-06 03:50] VITALS: BP 125/69; PULSE 150; RESP 20; TEMP 99.4
[2023-06-06] MEDS ORDERED: AMIODARONE HCL 150 MG in DEXTROSE 5%-WATER 97 ML IV ONE (04:00)
[2023-06-06] MEDS ORDERED: AMIODARONE HCL 360 MG in DEXTROSE 5%-WATER 242.8 ML IV ONE (04:00)
[2023-06-06] MEDS: LEVOTHYROXINE SODIUM 50 MCG TABLET PO SCH (05:48)
[2023-06-06 07:05] LABS: BASOPHILS % (AUTO) 0.5 % (0.0-2.0); EOSINOPHILS % (AUTO) 0.3 % (1.0-6.0); HEMATOCRIT 30.5 % (36-46); HEMOGLOBIN 10.1 g/dL (12.0-16.0); LYMPHOCYTES # (AUTO) 1.6 K/uL (1.0-4.8); MEAN CORPUSCULAR HEMOGLOBIN 29.9 pg (26.0-34.0); MEAN CORPUSCULAR HGB CONC 33.2 G/dL (31.0-37.0); MEAN CORPUSCULAR VOLUME 90 fL (80-100); MONOCYTES # (AUTO) 0.7 K/uL (0.1-1.0); MONOCYTES % (AUTO) 12.1 % (2.0-9.0); NEUTROPHILS # (AUTO) 3.4 K/uL (1.8-7.7); NEUTROPHILS % (AUTO) 59.1 % (40.0-70.0); PLATELET COUNT (AUTO) 291 K/uL (150-450); RED BLOOD CELL COUNT(AUTO) 3.39 MIL/uL (4.00-5.20); RED CELL DISTRIBUTION WIDTH 13.2 % (11.5-14.5); WHITE BLOOD COUNT (AUTO) 5.7 K/uL (4.5-11.0)
[2023-06-06 07:26] LABS: ALBUMIN 2.7 g/dL (3.4-5.0); BILIRUBIN,TOTAL 0.3 mg/dL (0.1-1.0); CALCIUM, TOTAL 7.9 mg/dL (8.8-10.5); CREATININE 2.63 mg/dL (0.60-1.30); POTASSIUM 4.1 mmol/L (3.5-5.1); TOTAL PROTEIN, SERUM 7.1 g/dL (6.4-8.2)
[2023-06-06 08:15] VITALS: BP 112/52; PULSE 88; RESP 20; TEMP 99.1
[2023-06-06] MEDS ORDERED: OMEPRAZOLE 20 MG CAPSULE PO SCH (09:00)
[2023-06-06] MEDS ORDERED: [UNRECOGNIZED DRUG - OTHER] TD SCH (09:00)
[2023-06-06] MEDS ORDERED: [UNRECOGNIZED DRUG - OTHER] PO SCH (09:00)
[2023-06-06] MEDS ORDERED: EMPAGLIFLOZIN 10 MG TABLET PO SCH (09:00)
[2023-06-06] MEDS: BUDESONIDE/FORMOTEROL FUMARATE 80-4.5 MCG/PUFF 10.2 GM INHALER IH SCH ×2 (09:09→20:14)
[2023-06-06] MEDS: PANTOPRAZOLE SODIUM 40 MG/VIAL IVP SCH (09:10)
[2023-06-06] MEDS: DOCUSATE SODIUM 100 MG CAPSULE PO SCH ×2 (09:11→20:22)
[2023-06-06] MEDS: CLOPIDOGREL BISULFATE 75 MG TABLET PO SCH (09:11)
[2023-06-06] MEDS: ASPIRIN 81 MG DR TABLET PO SCH (09:11)
[2023-06-06] MEDS ORDERED: AMIODARONE HCL 540 MG in DEXTROSE 5%-WATER 239.2 ML IV ONE (10:00)
[2023-06-06 12:00] VITALS: BP 121/72; PULSE 84; RESP 22; TEMP 98.4
[2023-06-06 15:40] VITALS: BP 125/70; PULSE 85; RESP 20; TEMP 98.1
[2023-06-06] MEDS: SODIUM CHLORIDE 0.9% 500 ML IV ONE ×2 (18:37→22:18)
[2023-06-06 20:00] VITALS: BP 152/80; PULSE 80; RESP 19; TEMP 98
[2023-06-06] MEDS: ATORVASTATIN CALCIUM 20 MG TABLET PO SCH (20:14)
[2023-06-06 20:32] LABS: GLUCOMETER DEV NAME(LOC) 5S.2C; GLUCOSE,POINT OF CARE 74 MG/DL (70-110)
[2023-06-06 20:46] LABS: GLUCOMETER DEV NAME(LOC) 5N.1C; GLUCOSE,POINT OF CARE 97 MG/DL (70-110)
[2023-06-06 20:46] LABS: GLUCOMETER DEV NAME(LOC) 5N.1C; GLUCOSE,POINT OF CARE 84 MG/DL (70-110)
[2023-06-06 20:47] LABS: GLUCOMETER DEV NAME(LOC) 5N.1C; GLUCOSE,POINT OF CARE 75 MG/DL (70-110)
[2023-06-06 23:05] LABS: PROTEIN,URINE RANDOM 103 mg/dL (0-11.9); SODIUM,URINE RANDOM 90 mmol/l (20-110)
[2023-06-07] VITALS: BP 127/37; PULSE 75; RESP 18; TEMP 98.2
[2023-06-07] MEDS: AMIODARONE HCL 750 MG in DEXTROSE 5%-WATER 485 ML IV SCH (04:06)
[2023-06-07] MEDS: LEVOTHYROXINE SODIUM 50 MCG TABLET PO SCH (06:00)
[2023-06-07 06:58] LABS: BASOPHILS % (AUTO) 0.5 % (0.0-2.0); EOSINOPHILS % (AUTO) 0.2 % (1.0-6.0); HEMATOCRIT 32.2 % (36-46); HEMOGLOBIN 10.8 g/dL (12.0-16.0); LYMPHOCYTES % (AUTO) 29.7 % (22.0-44.0); MEAN CORPUSCULAR HEMOGLOBIN 30.2 pg (26.0-34.0); MEAN CORPUSCULAR HGB CONC 33.6 G/dL (31.0-37.0); MEAN CORPUSCULAR VOLUME 90 fL (80-100); MONOCYTES % (AUTO) 14.9 % (2.0-9.0); NEUTROPHILS # (AUTO) 3.7 K/uL (1.8-7.7); NEUTROPHILS % (AUTO) 54.7 % (40.0-70.0); PLATELET COUNT (AUTO) 293 K/uL (150-450); RED BLOOD CELL COUNT(AUTO) 3.58 MIL/uL (4.00-5.20); RED CELL DISTRIBUTION WIDTH 13.3 % (11.5-14.5); WHITE BLOOD COUNT (AUTO) 6.8 K/uL (4.5-11.0)
[2023-06-07 07:18] LABS: ALBUMIN 2.7 g/dL (3.4-5.0); BILIRUBIN,TOTAL 0.2 mg/dL (0.1-1.0); CALCIUM, TOTAL 8.1 mg/dL (8.8-10.5); CREATININE 2.72 mg/dL (0.60-1.30); POTASSIUM 3.8 mmol/L (3.5-5.1); TOTAL PROTEIN, SERUM 7.3 g/dL (6.4-8.2)
[2023-06-07] MEDS: HEPARIN SODIUM,PORCINE 5,000 UNITS/ML VIAL SQ SCH ×3 (08:38→17:28)
[2023-06-07] MEDS: BUDESONIDE/FORMOTEROL FUMARATE 80-4.5 MCG/PUFF 10.2 GM INHALER IH SCH ×2 (08:39→20:10)
[2023-06-07] MEDS: DOCUSATE SODIUM 100 MG CAPSULE PO SCH ×2 (08:39→20:11)
[2023-06-07] MEDS: PANTOPRAZOLE SODIUM 40 MG/VIAL IVP SCH (08:39)
[2023-06-07] MEDS: HYDROCODONE/ACETAMINOPHEN 5-325 MG TABLET PO PRN ×3 (08:39→17:33)
[2023-06-07] MEDS: OSELTAMIVIR PHOSPHATE 30 MG CAPSULE PO SCH (08:40)
[2023-06-07] MEDS: ASPIRIN 81 MG DR TABLET PO SCH (08:40)
[2023-06-07] MEDS: CLOPIDOGREL BISULFATE 75 MG TABLET PO SCH (08:40)
[2023-06-07 10:56] LABS: GLUCOMETER DEV NAME(LOC) 5S.1B; GLUCOSE,POINT OF CARE 105 MG/DL (70-110)
[2023-06-07 11:45] VITALS: BP 106/49; PULSE 84; RESP 18; TEMP 99.2
[2023-06-07 15:52] VITALS: BP 118/56; PULSE 80; RESP 18; TEMP 98
[2023-06-07 20:00] VITALS: BP 108/57; PULSE 84; RESP 19; TEMP 99.6
[2023-06-07] MEDS: ATORVASTATIN CALCIUM 20 MG TABLET PO SCH (20:09)
[2023-06-07 21:06] LABS: GLUCOMETER DEV NAME(LOC) 5S.2C; GLUCOSE,POINT OF CARE 133 MG/DL (70-110)
[2023-06-07 21:06] LABS: GLUCOMETER DEV NAME(LOC) 5S.2C; GLUCOSE,POINT OF CARE 100 MG/DL (70-110)
[2023-06-07 22:16] LABS: GLUCOMETER DEV NAME(LOC) 5N.2C; GLUCOSE,POINT OF CARE 88 MG/DL (70-110)
[2023-06-08] VITALS: BP 120/75; PULSE 70; RESP 19; TEMP 99.5
[2023-06-08] MEDS: HEPARIN SODIUM,PORCINE 5,000 UNITS/ML VIAL SQ SCH ×3 (00:20→16:15)
[2023-06-08 04:00] VITALS: BP 100/60; PULSE 87; RESP 18; TEMP 99.4
[2023-06-08] MEDS: AMIODARONE HCL 750 MG in DEXTROSE 5%-WATER 485 ML IV SCH (04:20)
[2023-06-08] MEDS: LEVOTHYROXINE SODIUM 50 MCG TABLET PO SCH (06:26)
[2023-06-08 07:38] LABS: BASOPHILS % (AUTO) 0.3 % (0.0-2.0); EOSINOPHILS % (AUTO) 0.6 % (1.0-6.0); HEMATOCRIT 32.8 % (36-46); LYMPHOCYTES % (AUTO) 27.3 % (22.0-44.0); MEAN CORPUSCULAR HEMOGLOBIN 29.7 pg (26.0-34.0); MEAN CORPUSCULAR HGB CONC 33.4 G/dL (31.0-37.0); MEAN CORPUSCULAR VOLUME 89 fL (80-100); MONOCYTES % (AUTO) 13.2 % (2.0-9.0); NEUTROPHILS # (AUTO) 4.3 K/uL (1.8-7.7); NEUTROPHILS % (AUTO) 58.6 % (40.0-70.0); PLATELET COUNT (AUTO) 298 K/uL (150-450); RED CELL DISTRIBUTION WIDTH 13.2 % (11.5-14.5); WHITE BLOOD COUNT (AUTO) 7.4 K/uL (4.5-11.0)
[2023-06-08 07:46] VITALS: BP 110/57; PULSE 90; RESP 18; TEMP 98
[2023-06-08 07:56] LABS: GLUCOMETER DEV NAME(LOC) 5N.2C; GLUCOSE,POINT OF CARE 96 MG/DL (70-110)
[2023-06-08 08:02] LABS: ALBUMIN 2.8 g/dL (3.4-5.0); BILIRUBIN,TOTAL 0.4 mg/dL (0.1-1.0); C-REACTIVE PROTEIN QUANT 7.79 mg/dL (0.00-0.30); CALCIUM, TOTAL 8.1 mg/dL (8.8-10.5); CREATININE 2.74 mg/dL (0.60-1.30); POTASSIUM 4.2 mmol/L (3.5-5.1); TOTAL PROTEIN, SERUM 7.5 g/dL (6.4-8.2)
[2023-06-08 08:07] VITALS: BP 132/84; PULSE 91; RESP 20; TEMP 98.2
[2023-06-08] MEDS: ASPIRIN 81 MG DR TABLET PO SCH (08:51)
[2023-06-08] MEDS: DOCUSATE SODIUM 100 MG CAPSULE PO SCH (08:51)
[2023-06-08] MEDS: OSELTAMIVIR PHOSPHATE 30 MG CAPSULE PO SCH (08:51)
[2023-06-08] MEDS: CLOPIDOGREL BISULFATE 75 MG TABLET PO SCH (08:51)
[2023-06-08] MEDS: PANTOPRAZOLE SODIUM 40 MG/VIAL IVP SCH (08:52)
[2023-06-08] MEDS: BUDESONIDE/FORMOTEROL FUMARATE 80-4.5 MCG/PUFF 10.2 GM INHALER IH SCH (08:52)
[2023-06-08] MEDS ORDERED: AMIODARONE HCL 200 MG TABLET PO SCH (12:15)
[2023-06-08 12:31] LABS: GLUCOMETER DEV NAME(LOC) 5S.2C; GLUCOSE,POINT OF CARE 81 MG/DL (70-110)
[2023-06-08 13:08] VITALS: BP 115/50; PULSE 75; RESP 18; TEMP 98
[2023-06-08 15:31] VITALS: BP 109/56; PULSE 86; RESP 18; TEMP 98
[2023-06-08] MEDS ORDERED: OSEL30CA PO (16:12)
[2023-06-08] MEDS ORDERED: AMIO200 PO (16:12)
[2023-06-09 07:06] LABS: ALBUMIN URINE (ELP) 43.9 %; TOTAL PROTEIN URINE 91.5 mg/dL (Not Estab.)
[2023-06-14] MEDS ORDERED: GUAI-1217 PO (10:41)
== END 2023-06-08 17:15 | disposition home or self-care (01) | DRG 469 ==
LOC: EMS 13:36 → 5S 15:53
PROVIDERS: ADMIT Hospitalist; ATTEND Hospitalist
DX: N17.9 Acute kidney failure, unspecified (principal); J10.00 Influenza due to other identified influenza virus with unspecified type of pneumonia; E87.20 Acidosis, unspecified; D63.1 Anemia in chronic kidney disease; I95.9 Hypotension, unspecified; E11.21 Type 2 diabetes mellitus with diabetic nephropathy; E86.0 Dehydration; E11.22 Type 2 diabetes mellitus with diabetic chronic kidney disease; N18.4 Chronic kidney disease, stage 4 (severe); M10.9 Gout, unspecified; Z20.822 Contact with and (suspected) exposure to COVID-19; I25.10 Atherosclerotic heart disease of native coronary artery without angina pectoris; E89.0 Postprocedural hypothyroidism; I12.9 Hypertensive chronic kidney disease with stage 1 through stage 4 chronic kidney disease, or unspecified chronic kidney disease; E78.5 Hyperlipidemia, unspecified; Z79.01 Long term (current) use of anticoagulants; Z79.899 Other long term (current) drug therapy; Z90.49 Acquired absence of other specified parts of digestive tract; Z98.891 History of uterine scar from previous surgery; Z79.84 Long term (current) use of oral hypoglycemic drugs
CPT/HCPCS: 70450; 71045; 76770; 80053; 80307; 81001; 82570; 82962; 83605; 83690; 84156; 84166; 84300; 84484; 85025; 86140; 87040; 87804; 93005; 93306; 93880; 99285; C9113; G0480; J0282; J1644; J2270; J7040; J7060; Q9967; 36415-L1; 36415-TC

== ENCOUNTER 2023-06-23 12:28 | Emergency (ER) | payer OTHER ==
[~2023-06-23] VITALS: Ht 157.5 cm; Wt 61.6 kg
[~2023-06-23 12:28] MED LIST changes: -AMOX1TAB16 PO; +ASPI-1444 PO; +ATOR20TA65 PO; +BUDE10.22 IH; +DICL100G60 TP; -DILT30TA4 PO; +GUAI-1217 PO; +ISOS30TA92 PO; -LEVO100 PO; +LEVO50TA11 PO; +LID5O TP; -OMEP20 PO; +OMEP20CA12 PO; -RENALOG PO; -ROSU10TA72 PO; -TELM40 PO
[2023-06-23 13:15] VITALS: TEMP 98.9
[2023-06-23 13:48] LABS: BASOPHILS % (AUTO) 0.3 % (0.0-2.0); EOSINOPHILS % (AUTO) 0.6 % (1.0-6.0); HEMATOCRIT 26.5 % (36-46); HEMOGLOBIN 8.9 g/dL (12.0-16.0); LYMPHOCYTES % (AUTO) 10.5 % (22.0-44.0); MEAN CORPUSCULAR HEMOGLOBIN 30.1 pg (26.0-34.0); MEAN CORPUSCULAR HGB CONC 33.6 G/dL (31.0-37.0); MEAN CORPUSCULAR VOLUME 90 fL (80-100); MONOCYTES # (AUTO) 0.6 K/uL (0.1-1.0); MONOCYTES % (AUTO) 6.5 % (2.0-9.0); NEUTROPHILS # (AUTO) 7.8 K/uL (1.8-7.7); NEUTROPHILS % (AUTO) 82.1 % (40.0-70.0); PLATELET COUNT (AUTO) 413 K/uL (150-450); RED BLOOD CELL COUNT(AUTO) 2.96 MIL/uL (4.00-5.20); RED CELL DISTRIBUTION WIDTH 13.6 % (11.5-14.5); WHITE BLOOD COUNT (AUTO) 9.5 K/uL (4.5-11.0)
[2023-06-23 14:09] LABS: CREATININE 2.12 mg/dL (0.60-1.30); POTASSIUM 4.6 mmol/L (3.5-5.1); TROPONIN I-HIGH SENSITIVITY 6 ng/L (<51)
[2023-06-23 14:13] LABS: ALBUMIN 2.7 g/dL (3.4-5.0); BILIRUBIN,TOTAL 0.5 mg/dL (0.1-1.0); TOTAL PROTEIN, SERUM 7.3 g/dL (6.4-8.2)
[2023-06-23 15:14] LABS: APPEARANCE,URINE CLEAR (CLEAR); BILIRUBIN,URINE NEGATIVE (NEGATIVE); COLOR,URINE LIGHT YELLOW (YELLOW); GLUCOSE, URINE (UA) NEGATIVE (NEGATIVE); KETONES,URINE NEGATIVE (NEGATIVE); LEUKOCYTE ESTERASE ,URINE NEGATIVE (NEGATIVE); NITRATE,URINE NEGATIVE (NEGATIVE); OCCULT BLOOD,URINE TRACE (NEGATIVE); PH,URINE 5.5 (5.0-8.0); PROTEIN,URINE 30-70 mg/dL (NEGATIVE); SPECIFIC GRAVITIY, URINE 1.013 (1.003-1.030); UROBILINOGEN,URINE <=1.0 mg/dL (<=1.0)
[2023-06-23 15:26] LABS: BACTERIA,URINE None Seen /HPF (None Seen); RBC,URINE None Seen /HPF (0-2); SQUAMOUS EPITHELIAL CELL,UR Few /LPF (None Seen); WBC,URINE None Seen /HPF (0-5)
[2023-06-23] MEDS ORDERED: SODIUM CHLORIDE 0.9% 250 ML IV ONE (15:30)
[2023-06-23 16:10] LABS: TROPONIN I-HIGH SENSITIVITY 8 ng/L (<51)
[2023-06-23 16:49] VITALS: BP 125/61; PULSE 90; RESP 20
== END 2023-06-23 17:58 | disposition home or self-care (01) ==
LOC: EMS 12:28
DX: I13.0 Hypertensive heart and chronic kidney disease with heart failure and stage 1 through stage 4 chronic kidney disease, or unspecified chronic kidney disease (principal); N18.4 Chronic kidney disease, stage 4 (severe); R79.89 Other specified abnormal findings of blood chemistry; R55 Syncope and collapse; J45.909 Unspecified asthma, uncomplicated; J44.9 Chronic obstructive pulmonary disease, unspecified; E03.9 Hypothyroidism, unspecified; Z90.49 Acquired absence of other specified parts of digestive tract
CPT/HCPCS: 71045; 76700; 80053; 81001; 83735; 83880; 84484; 85025; 93005; 96360; 99285; J7040; 36415-L1; 36415-TC

== ENCOUNTER 2023-08-16 01:35 | Emergency (ER) | payer OTHER ==
[~2023-08-16] VITALS: Ht 157.5 cm; Wt 72.0 kg
[2023-08-16 01:56] VITALS: TEMP 98.5
[2023-08-16 02:21] LABS: BASOPHILS % (AUTO) 0.8 % (0.0-2.0); EOSINOPHILS % (AUTO) 4.3 % (1.0-6.0); HEMATOCRIT 30.5 % (36-46); HEMOGLOBIN 10.1 g/dL (12.0-16.0); LYMPHOCYTES # (AUTO) 2.2 K/uL (1.0-4.8); LYMPHOCYTES % (AUTO) 29.1 % (22.0-44.0); MEAN CORPUSCULAR HEMOGLOBIN 29.7 pg (26.0-34.0); MEAN CORPUSCULAR HGB CONC 33.3 G/dL (31.0-37.0); MEAN CORPUSCULAR VOLUME 89 fL (80-100); MONOCYTES # (AUTO) 0.6 K/uL (0.1-1.0); MONOCYTES % (AUTO) 7.6 % (2.0-9.0); NEUTROPHILS # (AUTO) 4.4 K/uL (1.8-7.7); NEUTROPHILS % (AUTO) 58.2 % (40.0-70.0); PLATELET COUNT (AUTO) 357 K/uL (150-450); RED BLOOD CELL COUNT(AUTO) 3.42 MIL/uL (4.00-5.20); RED CELL DISTRIBUTION WIDTH 14.1 % (11.5-14.5); WHITE BLOOD COUNT (AUTO) 7.6 K/uL (4.5-11.0)
[2023-08-16 02:47] LABS: CALCIUM, TOTAL 8.2 mg/dL (8.8-10.5); CREATININE 2.03 mg/dL (0.60-1.30)
[2023-08-16 02:54] LABS: TROPONIN I-HIGH SENSITIVITY 6 ng/L (<51)
[2023-08-16 03:15] VITALS: BP 146/86; PULSE 80; RESP 18
== END 2023-08-16 03:44 | disposition home or self-care (01) ==
LOC: EMS 01:35
DX: I10 Essential (primary) hypertension (principal); J44.9 Chronic obstructive pulmonary disease, unspecified; E03.9 Hypothyroidism, unspecified; I11.0 Hypertensive heart disease with heart failure; I50.9 Heart failure, unspecified; Z90.49 Acquired absence of other specified parts of digestive tract
CPT/HCPCS: 80048; 84484; 85025; 93005; 99284